=== PATIENT | female | born 1990 | race Caucasian/White ===

== ENCOUNTER → 2018-12-15 16:27 | Outpatient (CLI) | payer BC, SELFPAY ==
[2018-12-15 20:02] LABS: Chlamydia Trachomatis by PCR Negative (Negative); Neisserai gonorrhoeae by PCR Negative (Negative); Probe Check PASS; Sample Adequacy Control PASS; Specimen Processing Control PASS
[2018-12-21 16:16] LABS: HPV Reflexed? NOT INDICATED
== END ==
PROVIDERS: Visit Provider Obstetrics & Gynecology
DX: Z11.3 Encounter for screening for infections with a predominantly sexual mode of transmission (principal); Z12.4 Encounter for screening for malignant neoplasm of cervix
CPT/HCPCS: 87491; 87591; 87624; 88175; G0145

== ENCOUNTER → 2018-12-24 13:35 | Outpatient (CLI) | payer BC, SELFPAY ==
[2014-10-27 11:00] VITALS: BMI 29.6
[2018-12-24 15:51] LABS: Absolute Lymphocyte Count 2.32 X10^3/uL (0.83-4.51); Absolute Neutrophil Count 6.8 X10^3/uL (2.0-7.7); Basophil# 0.03 X10^3/uL; Basophil% 0.3 % (0-1); Eosinophil# 0.06 X10^3/uL; Eosinophils% 0.6 % (0-5); Hematocrit 38.2 % (37-47); Hemoglobin 12.7 g/dL (12.0-15.0); Lymphocyte # 2.32 X10^3/ul (4.0); Lymphocyte % 23.7 % (19-41); Mean Corp Hgb Conc 33.2 g/dL (32-36); Mean Corpuscular Hgb 29.3 pg (27.0-32.0); Mean Platelet Vol. 9.5 fl (6.2-12.0); Monocyte# 0.58 X10^3/uL; Monocyte% 5.9 % (0-10); NRBC Flagged by Analyzer 0 % (0-5); Neutrophil # 6.78 X10^3/uL (2.7-7.7); Neutrophil % 69.4 % (47-70); Platelet Count 399 K/mm3 (150-450); RBC Distribution Width CV 13.4 % (11.6-14.6); RBC Distribution Width SD 43.7 fl (35.1-43.9); Red Blood Count 4.34 M/mm3 (4.2-5.4); White Blood Count 9.8 K/mm3 (4.4-11.0)
[2018-12-24 16:11] LABS: Amphetamine Urine VISTA NEGATIVE (<1000 ng/mL); Barbiturate Urine VISTA NEGATIVE (< 200 ng/mL); Benzodiazepine Urine VISTA NEGATIVE (< 200 ng/mL); Cocaine Urine VISTA NEGATIVE (< 300 ng/mL); Ecstacy Urine VISTA NEGATIVE (< 500 ng/mL); Methadone Urine VISTA NEGATIVE (< 300 ng/mL); PCP Urine VISTA NEGATIVE (< 25 ng/mL); THC Urine VISTA NEGATIVE (< 50 ng/mL); Vista UDS pH Range 5
[2018-12-24 16:17] LABS: Thyroid Stim Hormone (TSH) 0.46 uIU/mL (0.358-3.74)
[2018-12-24 16:21] LABS: Color, Urine Straw (Yellow); Glucose, Dipstick Normal (Normal); Ketone-Dipstick 5 mg/dl (Negative); Leukocyte Esterase-Dipstick 100 /ul (Negative); Nitrite-Dipstick Negative (Negative); Occult Blood-Urine 25 /ul (Negative); Protein-Dipstick Negative (Negative); Specific Gravity, Urine 1.025 (1.002-1.030); Urine Bilirubin Dipstick Negative (Negative); Urine Clarity Turbid (Clear); Urine Urobilinogen 1 mg/dl (Normal)
[2018-12-27 09:55] LABS: HIV - WCH Non-Reactive (Nonreactive); Hepatitis B Surface Antigen Non-Reactive (Nonreactive); Hepatitis C Antibody Non-Reactive (Nonreactive); Rubella IgG 184.9 IU/mL
[2018-12-31 01:54] LABS: Prenatal RPR NONREACTIVE (NONREACTIVE)
== END ==
PROVIDERS: Visit Provider Obstetrics & Gynecology
DX: Z34.81 Encounter for supervision of other normal pregnancy, first trimester (principal)
CPT/HCPCS: 36415; 80307; 81002; 84443; 85025; 86703; 86762; 86803; 87340

== ENCOUNTER → 2019-04-29 14:56 | Outpatient (CLI) | payer BC, SELFPAY ==
[2014-10-27 11:00] VITALS: BMI 29.6
[2019-04-29 16:11] LABS: Hematocrit 37.6 % (37-47); Hemoglobin 12.1 g/dL (12.0-15.0); Mean Corp Hgb Conc 32.2 g/dL (32-36); Mean Corpuscular Hgb 28.9 pg (27.0-32.0); Mean Platelet Vol. 9.5 fl (6.2-12.0); Platelet Count 396 K/mm3 (150-450); RBC Distribution Width CV 13.8 % (11.6-14.6); RBC Distribution Width SD 45.3 fl (35.1-43.9); Red Blood Count 4.18 M/mm3 (4.2-5.4); White Blood Count 12.3 K/mm3 (4.4-11.0)
[2019-04-29 16:27] LABS: Glucose Challenge Gest 1H 50g 143 mg/dL (70-140)
== END ==
PROVIDERS: Referring Provider Advanced Practice Midwife; Visit Provider Advanced Practice Midwife
DX: Z34.82 Encounter for supervision of other normal pregnancy, second trimester (principal)
CPT/HCPCS: 36415; 82950; 85027

== ENCOUNTER → 2019-05-03 06:44 | Outpatient (CLI) | payer BC, SELFPAY ==
[2019-05-03 07:34] LABS: Glucose GTT-Gestation. Fasting 79 mg/dL (<105)
[2019-05-03 08:32] LABS: Glucose GTT-Gestational 1 Hr 131 mg/dL (<190)
[2019-05-03 09:22] LABS: Glucose GTT-Gestational 2 Hr 131 mg/dL (<165)
[2019-05-03 10:51] LABS: Glucose GTT-Gestational 3 Hr 114 L (<145)
== END ==
PROVIDERS: Obstetrics & Gynecology; PCP Family Medicine; Referring Provider Obstetrics & Gynecology; Visit Provider Obstetrics & Gynecology
DX: Z34.82 Encounter for supervision of other normal pregnancy, second trimester (principal)
CPT/HCPCS: 36415; 82951; 82952

== ENCOUNTER → 2019-07-01 12:45 | Outpatient (CLI) | payer BC, SELFPAY ==
[2014-10-27 11:00] VITALS: BMI 29.6
== END ==
PROVIDERS: PCP Family Medicine; Referring Provider Obstetrics & Gynecology; Visit Provider Obstetrics & Gynecology
DX: Z36.85 Encounter for antenatal screening for Streptococcus B (principal)
CPT/HCPCS: 87081

== ENCOUNTER 2019-08-03 07:05 | Inpatient (IN) | payer BC, SELFPAY ==
[2014-10-27 11:00] VITALS: BMI 29.6
[2019-08-03] VITALS (35 sets, daily range): BP systolic 104–158; BP diastolic 64–91; PULSE 64–115; RESP 16; TEMP 36.4–37.4; O2SAT 97–100; BMI 31.6
[2019-08-03] MEDS: Lactated Ringers 1,000 ML 50 ML IV (07:30)
[2019-08-03 07:46] LABS: Absolute Lymphocyte Count 2.76 X10^3/uL (0.83-4.51); Absolute Neutrophil Count 7.9 X10^3/uL (2.0-7.7); Basophil# 0.03 X10^3/uL; Basophil% 0.3 % (0-1); Eosinophil# 0.04 X10^3/uL; Eosinophils% 0.3 % (0-5); Hematocrit 39.2 % (37-47); Hemoglobin 12.6 g/dL (12.0-15.0); Lymphocyte # 2.76 X10^3/ul (4.0); Lymphocyte % 24.1 % (19-41); Mean Corp Hgb Conc 32.1 g/dL (32-36); Mean Corpuscular Hgb 27.6 pg (27.0-32.0); Mean Corpuscular Volume 85.8 fL (81-99); Mean Platelet Vol. 9.3 fl (6.2-12.0); Monocyte# 0.68 X10^3/uL; Monocyte% 5.9 % (0-10); NRBC Flagged by Analyzer 0 % (0-5); Neutrophil # 7.89 X10^3/uL (2.7-7.7); Neutrophil % 68.8 % (47-70); Platelet Count 414 K/mm3 (150-450); RBC Distribution Width CV 14.8 % (11.6-14.6); RBC Distribution Width SD 45.4 fl (35.1-43.9); Red Blood Count 4.57 M/mm3 (4.2-5.4); White Blood Count 11.5 K/mm3 (4.4-11.0)
[2019-08-03] MEDS: Oxytocin 30 units/NS 500 ml 30 UNITS/500 ML IV.SOLN IV (07:53)
[2019-08-03] MEDS: Lactated Ringers 500 ML 999 ML IV (10:17)
[2019-08-03] MEDS: fentaNYL-bupivacaine (epidural) 100 ML BAG EPIDURAL (11:51)
[2019-08-03] MEDS: Oxytocin 30 units/NS 500 ml 30 UNITS/500 ML IV.SOLN 334 UNITS IV (13:32)
--- NOTE | 2019-08-03 13:41 | HP.PCM_ITS ---
History and Physical Date of Admission: 08/03/19 [facility]TE[facility] RECORD - HISTORY AND PHYSICAL (08/03/2019) Name: JESSICA PERDOMO History of This : This is a 29-year-old who presents for postdates induction. care has been uneventful. OB Physician: CARISSA 's Physician: Dr Tran at [facility] ...................................................................... : 1990 Age: 29 Address: [address] [place] [address] Phone: H) [phone] Insurance Carrier: [employer] [facility] [id number] Emergency Contact: SLICK PERDOMO/ [phone] ...................................................................... Final SURYA: 07/27/19 By Ultrasound: 9 weeks 2 days PARITY: (G-Total Pregnancies P-Fullterm,Premature,Induced AB,Spont AB, Ectopics, Multiple,Living) SURYA CONFIRMATION: By LMP: 10/20/18 Initial Exam: 07/27/19 By First Ultrasound Exam: 07/24/19 Final SURYA: 07/27/19 OB PROBLEM LIST: 3 hour GTT was normal Declines MSAFP and CF screening NOT immune to chickenpox. 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 [place] Hours Worked - 15 hrs wk Spouse-Sig Other Name - Slick Perdomo Spouse-Sig Other Occupation - [employer] Spouse-Sig Other Phone No - [phone] Children Name(s) - Davidson ('13) JW, Berna ('15) ADWOA PRIOR DELIVERY HISTORY DEL DATE GEST LAB WT LB WT OZ TYPE ANES LABOR TX 07 Nov 04 40 8 7 15 Vagin Epidural No Nov 02 40 16 7 2 Vag Epidural No ANTEPARTUM FLOW CHART VISIT GE RTC FU F F NH U U DATE WK MD WKS HT PN HR M SS BP ED WT NH GL D EF ST __ ____ ___ __ __ ___ __ __ __ ___ __ __ __ ___ __ July JMW 6 38 V + + 114/70 sl 200 tr - S July JMW 1 38 V + + 128/82 sl 200 tr - 4 60 -2 30 Jun 39 CH 1 39 V + + 130/78 sl 199 - - 3+ 50 -2 Jun JMW 1 38 V + + 126/78 sl 200 tr - 2+ 50 -2 Jun JMW 1 37 + + 122/68 sl 199 tr - 10 Jun SHM 1 36 V + + 110/72 0 197 tr - 2+ 50 -3 13 May CH 2 32 V + + 96/78 0 191 tr - 28 Apr JMW 3 30 + + 118/72 0 191 tr - 07 May 19 KW 2 26 + ++ 110/78 0 189 ne ne Apr 14 JMW 4 24 + + 100/70 0 185 tr - 11 Mar 10 JMW 4 20 + + 122/78 0 184 - - Feb 06 JMW 2 17 + + 120/80 0 183 tr - 30 Jan 02 JMW 4 13 + + 116/60 0 185 tr - 04 Dec 29 ELB 4 - - + O 110/80 0 188 tr - ANTEPARTUM NOTE(S): Aug 01 2019: Ctxs-mild, Good FM July 27 2020: Ctxs-mild, Good FM Jul 20 2020: Ctxs-occas, Good FM Jul 13 2020: Good FM Jul 06 2020: Good FM,Feeling Well Jun 30 2020: see note Jun 03 2019: feeling well. May 20 2019: Gooid FM,Had Whooping Cough Inj on 05/18/19 Apr 29 2019: forgot to drink glucola today needs to return for lab Mar 30 2019: feeling well. Glucola given. Mar 02 2019: Sono Today,Good FM,Feeling Well Feb 16 2019: feeling well., Declines AFP Jan 19 2019: Nausea Better,Fatigue Periodically Dec 24 2018: feeling well. Nob labs done today. COMPREHENSIVE ANTEPARTUM NOTE(S): Aug 01 2019: Pitocin Induction scheduled for 7 AM 08/03/19 w/Elsi in OB. Consent signed. Induction literature given. Jul 21 2019: +FM. FHR 148 with accel heard. Feeling well. SVE today with membrane sweep done. /-2. Wants to avoid IOL and go into labor natural. No questions or concerns. To return next week if needed. - Jul 14 2019: Doing well. Good FM. Having some ctx's every day, nothing regular. No leaking fluid. No spotting. Wants vag exam today. She is pre- registered. kbm Jul 05 2019: H taken to OB. tkg Jul 01 2019: Jessica is here for visit. LARC consent completed and declined. GBS today. Reviewed FM, SROM, and labor. No concerns voiced. LMT Jun 03 2019: (m,f,*) Reviewed passing 3H gtt, although she had failed the 1H. To watch sweets and white carbs. Encouraged to switch to whole grains. Feeling good FM. FHR today 140. Reviewed signs of labor. Coronavirus info given. To return in 2 weeks for routine PNV w JW. - Apr 29 2019: Feeling well; reports active FM; denies UCs, VB, LOF; 1-hour Glucola and bloodwork drawn today; discussed safety concerns, warning signs, s/s PTL; RTO 2 weeks for PNV - KVW Jan 19 2019: Jessica is here for her NOB visit at 13 w 0 d, she is a with an SURYA of 07/27/2019. She and her , Slick, have two children at home. Both children were delivered vaginally; past history updated. Delivery with an epidural at [facility] is planned, and at this time Jessica is undecided about feeding method. She has reviewed handbook, and is aware of emergencies/danger signs to report and common OTC medications approved/not approved for use during . Office practice patterns reviewed. labs collected at her last visit. Round ligament pain and reporting suspected UTI discussed. Jessica states that her nausea is beginning to resolve, and she can eat and drink most foods. Encouraged small frequent balanced meals with protein included throughout the day, and adequate water hydration of at least one gallon per 24 hours. She is a life long non-smoker, and denies use of drugs or ETOH. Genetic Screening form completed; both Jessica and her have cousins with unknown developmental delays. MSAFP and CF screening declined, consent signed as such. She takes a tablet that she received from her PCP, and states that she tolerates this well. Water and dietary needs reinforced, including recommended weight gain, caloric needs, limiting empty calories, and limiting caffeine to one serving a day. Printed guide for food safety provided with review. Jessica states that she and her co- workers take walks at lunch time, and she plans to continue walking throughout . Reviewed Kegel exercises. Lifting restrictions discussed. Jessica states hat she understands all information provided during NOB visit and has no questions following same. AW New Dec 28 2018: Rubella immune. EB Dec 24 2018: O Positive Hgb 12.7 g/dl. EB Dec 22 2018: Pap and cultures WNL. EB Dec 15 2018: Jessica presents here today with spouse for Missed Menses appointment. 28 y.o. G 3 P 2 non-smoker with history of regular menses and LMP of 10-20-18 lasting her average of 4-5 days. UPT is positive today in our Office. Presents at 7 weeks 6 days with an approximate SURYA of 07-28-19 and plans at [facility], with last in 2014. Denies spotting/bleeding thus far in . Periodic nausea and tender breasts. History of normal pap screenings sinve 2012 with last in 2013. Currently taking an OTC Vitamin with Educational Materials given. SAUL Dec 15 2019: ok REVIEW OF SYSTEMS: GENERAL - Denies fever, or chills SKIN - Denies rash, new skin lesions, or change in moles EYES - Denies blurred vision, or change in visual acuity EARS - Denies ear pain, or difficulty hearing NOSE - Denies nasal congestion, discharge, or bleeding MOUTH - Denies sore throat, or difficulty swallowing NECK - Denies pain or swelling RESPIRATORY - Denies shortness of breath, cough, wheezing CARDIOVASCULAR - Denies palpitations, chest pain, orthopnea, PND, peripheral edema, syncope or claudication GASTROINTESTINAL - Denies nausea, vomiting, diarrhea, constipation, Denies abdominal pain, melena and or bright red blood GENITOURINARY - Denies dysuria, frequency of urination, urgency, or hesitancy MUSCULOSKELETAL - Denies joint or muscle pain, or back pain NEUROLOGICAL - Denies localized numbness, weakness, or tingling PSYCHIATRIC - Denies depression, anxiety, substance abuse or suicide attempts ENDOCRINE - Denies heat or cold intolerance, weight loss or gain, increasing thirst HEMATO-IMMUNOLOGIC - Denies easy bruising, bleeding, oral ulcerations or recurrent infections GENETICS SCREENING: Age 35+ years: No Thalassemia: No Neural Tube Defect: No Down Syndrome: No RICK-SACHS: No Sickle Cell Disease: No Hemophilia: No Musc. Dystrophy: No Cystic Fibrosis: No-declines screening [place] Chorea: No Mental Retardation: No Fragile X: No Other genetic: No Other defects: No SABs/still births: No Drugs since LMP: No Comments: cousins with developmental disabilities INFECTION HISTORY: High risk AIDS: No High risk Hepatitis: No Exposed to TB: No Exposed to Herpes: No Rash/viral illness since LMP: No History of STD: No MENSTRUAL HISTORY: *Menses Amount/Duration: 4-5 DAYSMenses Regularity: RegularFrequency: monthlyMenarche (Age Onset): 11* PAST SUMMARY: PARITY: 1. Total Pregnancies............ 3 2. Full Term Pregnancies........ 2 3. Premature.................... 0 4. Abortions - Induced.......... 0 5. Abortions - Spontaneous...... 0 6. Ectopics..................... 0 7. Multiple Births.............. 0 8. Living Children.............. 2 PAST #1: Date of :.................. 11/01/12 Gestation Weeks:................ 40 Length of labor(hours):......... 16 Sex:............................ M Weight-lbs:............... 7 Weight-oz:................ 2 Type of Delivery:............... Vag Type of Anesthesia:............. Epidural Place of Delivery:.............. [place] Treatment of Labor?:.... No Comment: NONE PAST #2: Date of :.................. 10/27/14 Gestation Weeks:................ 40 Length of labor(hours):......... 8 Sex:............................ M Weight-lbs:............... 7 Weight-oz:................ 15 Type of Delivery:............... Vaginal Type of Anesthesia:............. Epidural Place of Delivery:.............. [place] Treatment of Labor?:.... No Comment: PHYSICAL EXAMINATION General Appearence: 29 yo female in no acute distress Vital Signs: AF, VSS Heart: RRR without rubs or gallops Lungs: CTA x 2 Breasts: deferred Abdomen: gravid Pelvis: Cervix: 4+/60 percent effaced Presentation: cephalic Station: -2 station Fetus: Size: AGA Movement: present Heart: present Labs for : JESSICA PERDOMO since 10/30/2018 ORDER DATEIN DESCRIPTION VALUE UNITS RANGE A+ COMMENT TYPE AND SCREEN 08/03/19 Reason for Type AND Screen/Red Cells: Labor [facility]~[address] [place], [address]~ BLOOD TYPE GEL O POSITIVE N w ANTIBODY SCREEN NEGATIVE N CBC W/DIFF, AUTOMATED 08/03/19 NOTE Original Ordering Provider: Greg Patrick WBC 11.5 K/mm3 4.4-11.0 H RBC 4.57 M/mm3 4.2-5.4 HGB 12.6 g/dL 12.0-15.0 HCT 39.2 % 37-47 MCV 85.8 fL 81-99 MCH 27.6 pg 27.0-32.0 MCHC 32.1 g/dL 32-36 RDW CV 14.8 % 11.6-14.6 H RDW SD 45.4 fl 35.1-43.9 H PLT 414 K/mm3 150-450 MPV 9.3 fl 6.2-12.0 NEUT% 68.8 % 47-70 LY% 24.1 % 19-41 MONO% 5.9 % 0-10 EO% 0.3 % 0-5 BASO% 0.3 % 0-1 IM GRAN % 0.600 % 0.0-0.9 IG% - Immature Granulocytes (promyelocytes, myelocytes and metamyelocytes) > 1% indicates that a LEFT SHIFT is Present. ABSOLUTE NEUT 7.9 X10 3/uL 2.0-7.7 H ABSOLUTE LYMPH 2.76 X10 3/uL 0.83-4.51 NRBC, FLAGGED 0 % 0-5 CULTURE, GROUP B STREPTOCOCCUS 07/01/19 NOTE Original Ordering Provider: Cindy Gonsalves WAYLON Culture Group B Beta Streptococcus is not isolated. Reviewed by DEJA GESTATIONAL GTT 3HR 100G 05/03/19 NOTE Original Ordering Provider: RUTH ANN Pedroza GLU GTT-FASTING 79 mg/dL <105 GLUCOSE TOLERANCE TEST FOR Reference Interval GESTATIONAL DIABETES Fasting <105 mg/dL 1 hour <190 mg/dl 2 hour <165 mg/dl 3 hour <145 mg/dl GLU GTT- 1HR 131 mg/dL <190 GLU GTT- 2HR 131 mg/dL <165 GLU GTT- 3HR 114 L <145 Reviewed by GREG GLUCOSE CHALLENGE GEST 1H 50G 04/29/19 NOTE Original Ordering Provider: RUTH ANN Rachaelamerico Porras GLU GEST 50G 1H 143 mg/dL 70-140 H Reviewed by DEJA CBC-COMPLETE BLOOD CNT NO DIFF 04/29/19 NOTE Original Ordering Provider: JASONMarietta Porras WBC 12.3 K/mm3 4.4-11.0 H RBC 4.18 M/mm3 4.2-5.4 L HGB 12.1 g/dL 12.0-15.0 HCT 37.6 % 37-47 MCV 90.0 fL 81-99 MCH 28.9 pg 27.0-32.0 MCHC 32.2 g/dL 32-36 RDW CVw 13.8 % 11.6-14.6 RDW SD 45.3 fl 35.1-43.9 H PLT 396 K/mm3 150-450 MPV 9.5 fl 6.2-12.0 Reviewed by DEJA koch RPR 12/24/18 NOTE Original Ordering Provider: Jessica Monsalve RPR NONREACTIVE NONREACTIVE Reviewed by JESSICA HEPATITIS C ANTIBODY 12/24/18 NOTE Original Ordering Provider: Jessica Monsalve HEPATITIS C AB Non-Reactive Nonreactive Non Reactive: < 0.8 Equivocal: >/= 0.8 to < 1.0 Reactive: >/= 1.0 The CDC recommends that a reactive/equivocal HCV antibody result be followed up by the HCV Nucleic Acid Amplification test ([id number]) HEPATITIS B SURFACE ANTIGEN 12/24/18 NOTE Original Ordering Provider: Jessica Monsalve HEPB SURFACE AG Non-Reactive Nonreactive Reviewed by JESSICA HIV - [facility] 12/24/18 NOTE Original Ordering Provider: Jessica Monsalve HIV - [facility] Non-Reactive Nonreactive Reviewed by JESSICA RUBELLA IGG 12/24/18 NOTE w Original Ordering Provider: Jessica Monsalve RUBELLA IGG 184.9 IU/mL Antibody results Interpretation of Immune Status < 5 IU/ml Presumed Non-immune 5 - < 10 IU/ml Equivocal > or = 10 IU/ml Presumed Immune Reviewed by JESSICA T AND S-NO CHARGE W/PNP 12/24/18 Reason for Type AND Screen/Red Cells: Surgery? N [facility]~[address] [place], [address]~ BLOOD TYPE GEL O POSITIVE N AB SCREEN GEL NEGATIVE N Reviewed by JESSICA URINALYSIS, ROUTINE (DIPSTICK) 12/24/18 NOTE Original Ordering Provider: Jessica Monsalve COLOR Straw Yellow CLARITY Turbid Clear GLUCOSE, UR Normal mg/dl Normalw BILIRUBIN URINE Negative mg/dL Negative KETONE UR 5 mg/dl Negative H SP.GR. DIPSTX 1.025 1.002-1.030 PH UR 5.0 w 5.0 - 8.0 PROT DIPSTX Negative mg/dl Negative UROBILI 1 mg/dl Normal H NITRITE UR Negative Negative OCCULT BLOOD-UR 25 /ul Negative H LEUK ESTERASE 100 /ul Negative H Reviewed by JESSICA THYROID STIM HORMONE (TSH) 12/24/18 NOTE Original Ordering Provider: Jessica Monsalve TSH 0.46 uIU/mL 0.358-3.74 Reviewed by JESSICA URINE DRUG SCREEN (VISTA) 12/24/18 NOTE Original Ordering Provider: Jessica Monsalve TO BE CONFIRMED CONFIRMATORY TESTING FOR ALL POSITIVE URINE DRUG SCREEN RESULTS WILL ONLY BE SENT OUT UPON PHYSICIAN ORDER. VISTA Urine Drug Screen methods provide only preliminary analytical test results. A more specific alternate chemical method must be used in order to obtain a confirmed analytical result. Gas chromatography/mass spectrometery (GC/MS) is the preferred confirmatory method. Clinical consideration and professional judgement should be applied to any drug of abuse test result, particularly when preliminary positive results are used. URINE TCA TESTING MUST BE ORDERED SEPARATELY. USE TEST MNEMONIC: [facility]IST[facility] UDS PH 5 AMPHETAMINES NEGATIVE <1000 ng/mL BARBITIURATES NEGATIVE < 200 ng/mL BENZODIAZIPINE NEGATIVE < 200 ng/mL COCAINE NEGATIVE < 300 ng/mL ECSTACY NEGATIVE < 500 ng/mL METHADONE NEGATIVE < 300 ng/mL OPIATES NEGATIVE < 300 ng/mL PCP NEGATIVE < 25 ng/mL THC NEGATIVE < 50 ng/mL Reviewed by JESSICA CBC W/DIFF, AUTOMATED 12/24/18 NOTE Original Ordering Provider: Jessica Monsalve WBC 9.8 K/mm3 4.4-11.0 RBC 4.34 M/mm3 4.2-5.4 HGB 12.7 g/dL 12.0-15.0 HCT 38.2 % 37-47 MCV 88.0 fL 81-99 MCH 29.3 pg 27.0-32.0 MCHC 33.2 g/dL 32-36 RDW CV 13.4 % 11.6-14.6 RDW SD 43.7 fl 35.1-43.9 PLT 399 K/mm3 150-450 MPV 9.5 fl 6.2-12.0 NEUT% 69.4 % 47-70 LY% 23.7 % 19-41 MONO% 5.9 % 0-10 EO% 0.6 % 0-5 BASO% 0.3 % 0-1 IM GRAN % 0.100 % 0.0-0.9 IG% - Immature Granulocytes (promyelocytes, myelocytes and metamyelocytes) > 1% indicates that a LEFT SHIFT is Present. ABSOLUTE NEUT 6.8 X10 3/uL 2.0-7.7 ABSOLUTE LYMPH 2.32 X10 3/uL 0.83-4.51 NRBC, FLAGGED 0 % 0-5 Reviewed by JESSICA PAP IG W/REFLEX HR HPV APTIMA 12/15/18 NOTE Original Ordering Provider: Greg Patrick DIAGN . NEGATIVE FOR INTRAEPITHELIAL LESION OR MALIGNANCY. ADEQ . Satisfactory for evaluation. Endocervical and/or squamous metaplastic cells (endocervical component) are present. PERFORM . Araceli Carran[employer] Sales Representative (ASCP) TEST METHOD . This liquid based ThinPrep(R) pap test was screened with the use of an image guided system. COMM . . PAPSMR . The Pap smear is a screening test designed to aid in the detection of premalignant and malignant conditions of the uterine cervix. It is not a diagnostic procedure and should not be used as the sole means of detecting cervical cancer. Both false-positive and false-negative reports do occur. HPV RFLX . The HPV DNA reflex criteria were not met with this specimen result therefore, no HPV testing was performed. Performed at: [address], [place] [id number] Water Valve Mechanic: Maryanne Campbell MD, Phone: [phone] Reviewed by JESSICA OLEARY/MICHAEL [facility] BY PCR 12/15/18 NOTE Original Ordering Provider: Greg HYMAN [facility] PCR Negative Negative NG BY PCR Negative Negative Reviewed by GREG Impression /Plan: 41-week intrauterine for postdates induction with amniotomy and Pitocin. Expect spontaneous vaginal delivery. Preparations in progress for delivery.
--- NOTE | 2019-08-03 13:46 | PCM.OPRPT ---
Vaginal Delivery Maternal Presentation: Medically Indicated Induction Method of Induction: Pitocin, Amniotomy Medical Reason for Induction: Post term Amniotic Membrane Rupture Type: Artificial Amniotic Fluid Description: Clear Final SURYA: 07/27/19 Final SURYA Source: US <20 weeks Gestational age: 41 Weeks and 0 Days Date of Procedure: 08/03/19 Pre-Operative Diagnosis: Postdatism, IUP Post-Operative Diagnosis: Postdatism, IUP Surgery/ Procedure Performed: Vacuum Assisted Vaginal Delivery Type of Anesthesia: Epidural Description of Procedure: Spontaneous vaginal delivery of a viable male infant with Apgars of 9/9 from an occiput anterior presentation with clear amniotic fluid and normal three-vessel placenta. No episiotomy. Second-degree midline laceration repaired with 3-0 Rapide suture under epidural. Kiwi vacuum used x1 gentle pull from low outlet to expedite delivery of the head due to deep decelerations with contractions. Sponges okay. Delivery physician: Germain Patrick MD. Presentation: Vertex Placental Delivery Description: Spontaneous Placenta Disposition: [facility] Cord Vessel Description: 3 Vessels Cord Entanglement: None Estimated Blood Loss: 250 cc A gender: Male (1 minute): 9 (5 minute): 9 Episiotomy Description: None Laceration: Midline, 2nd degree Medications given after delivery: IV Pitocin Complications: None
--- NOTE | 2019-08-03 13:49 | DCINST_ITS ---
<Germain Patrick - Last Filed: 08/03/19 13:49> Discharge Diet: No Restrictions Discharge Activity: May Shower, May Take a Tub Bath May resume sexual activity in: 4-6 weeks Additional Activity Instructions:: Nothing in the vagina for 4-6 weeks. You may return to work/school in 6 weeks. Call your doctor if you observe: Fever of 101 or Higher, Inability to urinate, Inability to have a bowel movement, Using more than one pad per hour Additional Instructions: If you experience any of the following, contact your healthcare provider. * Bleeding that soaks a pad every hour for 2 hours * Fever 100.4 or higher * Unrelieved incision or abdominal pain * Swelling, redness, discharge or bleeding from your incision or episiotomy site * Your incision begins to separate * Problems urinating (including inability to urinate or burning while urinating). * Visual changes * Severe headache * Flu-like symptoms * Pain or redness in one of both of your breasts * Pain, warmth, tenderness or swelling in your legs, especially the calf area * Frequent nausea and vomiting * Symptoms of depression or anxiety If you experience any of the following, call 911 or go to the nearest Emergency Room. * Chest pain * Problems breathing * Seizure activity * Partial or complete paralysis of a body part, slurred speech, weakness or drooping of the face, or a sudden inability to walk or hold your balance Allergies/Adverse Reactions: Allergies No Known Allergies Allergy (Verified 08/03/19 07:26) Medications to take at Discharge Vits [Prenatabs FA ] 1 tablet PO DAILY 10/27/14 Please Follow Up With: Germain Patrick MD - [phone] When: Call to make an appointment with your doctor in 6 weeks. Primary Care Physician: Carlos Rob MD [Primary Care Provider] - Test Results: Test results from this visit will be discussed in further detail at your follow- up appointment, if applicable. <Cindy Pandey - Last Filed: 08/05/19 08:47> Additional Instructions: If you experience any of the following, contact your healthcare provider. * Bleeding that soaks a pad every hour for 2 hours * Fever 100.4 or higher * Unrelieved incision or abdominal pain * Swelling, redness, discharge or bleeding from your incision or episiotomy site * Your incision begins to separate * Problems urinating (including inability to urinate or burning while urinating). * Visual changes * Severe headache * Flu-like symptoms * Pain or redness in one of both of your breasts * Pain, warmth, tenderness or swelling in your legs, especially the calf area * Frequent nausea and vomiting * Symptoms of depression or anxiety If you experience any of the following, call 911 or go to the nearest Emergency Room. * Chest pain * Problems breathing * Seizure activity * Partial or complete paralysis of a body part, slurred speech, weakness or drooping of the face, or a sudden inability to walk or hold your balance Test Results: Test results from this visit will be discussed in further detail at your follow- up appointment, if applicable.
--- NOTE | 2019-08-03 13:49 | PCM.DCVAG ---
<Germain Patrick - Last Filed: 08/03/19 13:49> Discharge Diet: No Restrictions Discharge Activity: May Shower, May Take a Tub Bath May resume sexual activity in: 4-6 weeks Additional Activity Instructions:: Nothing in the vagina for 4-6 weeks. You may return to work/school in 6 weeks. Call your doctor if you observe: Fever of 101 or Higher, Inability to urinate, Inability to have a bowel movement, Using more than one pad per hour Additional Instructions: If you experience any of the following, contact your healthcare provider. Bleeding that soaks a pad every hour for 2 hours Fever 100.4 or higher Unrelieved incision or abdominal pain Swelling, redness, discharge or bleeding from your incision or episiotomy site Your incision begins to separate Problems urinating (including inability to urinate or burning while urinating). Visual changes Severe headache Flu-like symptoms Pain or redness in one of both of your breasts Pain, warmth, tenderness or swelling in your legs, especially the calf area Frequent nausea and vomiting Symptoms of depression or anxiety If you experience any of the following, call 911 or go to the nearest Emergency Room. Chest pain Problems breathing Seizure activity Partial or complete paralysis of a body part, slurred speech, weakness or drooping of the face, or a sudden inability to walk or hold your balance Allergies/Adverse Reactions: Allergies No Known Allergies Allergy (Verified 08/03/19 07:26) Medications to take at Discharge Vits [Prenatabs FA ] 1 tablet PO DAILY 10/27/14 Please Follow Up With: Gemrain Patrick MD - [phone] When: Call to make an appointment with your doctor in 6 weeks. Primary Care Physician: Carlos Rob MD [Primary Care Provider] - Test Results: Test results from this visit will be discussed in further detail at your follow-up appointment, if applicable. <Cindy Pandey - Last Filed: 08/05/19 08:47> Additional Instructions: If you experience any of the following, contact your healthcare provider. Bleeding that soaks a pad every hour for 2 hours Fever 100.4 or higher Unrelieved incision or abdominal pain Swelling, redness, discharge or bleeding from your incision or episiotomy site Your incision begins to separate Problems urinating (including inability to urinate or burning while urinating). Visual changes Severe headache Flu-like symptoms Pain or redness in one of both of your breasts Pain, warmth, tenderness or swelling in your legs, especially the calf area Frequent nausea and vomiting Symptoms of depression or anxiety If you experience any of the following, call 911 or go to the nearest Emergency Room. Chest pain Problems breathing Seizure activity Partial or complete paralysis of a body part, slurred speech, weakness or drooping of the face, or a sudden inability to walk or hold your balance Test Results: Test results from this visit will be discussed in further detail at your follow-up appointment, if applicable.
[2019-08-03] MEDS: Ibuprofen 600 MG Tablet PO (22:09)
[2019-08-04] VITALS (10 sets, daily range): BP systolic 103–122; BP diastolic 58–77; PULSE 66–96; RESP 14–18; TEMP 36.2–36.6; O2SAT 96–98
--- NOTE | 2019-08-04 07:24 | PCM.PN.OB ---
Subjective: Doing well with cramping while , but tolerable. Denies heavy bleeding. Has been up to the bathroom. Urinating fine and passing flatus. Denies any other concerns. Would like to stay until tomorrow. Objective: VSS. Fundus is firm, midline, u/1. Lochia rubra moderate. with appropriate latch. - Physical Exam Vitals/I&O's: Vital Signs Temp Pulse Resp BP Pulse Ox 97.1 F L 66 18 122/77 H 99 08/04/19 04:50 08/04/19 04:51 08/04/19 04:50 08/04/19 04:51 08/03/19 12:09 Oxygen Delivery Method Room Air Weight: 91.444 kg Body Mass Index (BMI) 31.6 Intake and Output for Last 24 Hours 08/02/19 08/03/19 08/04/19 23:59 23:59 23:59 Intake Total 1698.90 / 1698.90 Output Total 1400 / 1400 Balance 298.90 / 298.90 General: Alert, Oriented x3, Cooperative HEENT: Atraumatic, PERRLA, EOMI, Normocephalic Neck: Supple, No JVD, Negative Carotid Bruits Lungs: Clear to auscultation, Normal air movement Cardiovascular: Regular rate, No murmurs Abdomen: Bowel Sounds Present, Soft, Non Tender, Passing Flatus Extremities: No edema, Capillary Refill Less than 3 Seconds Skin: No rashes, No breakdown Musculoskeletal: No Tenderness to Palpation of Joints or Extremities Neurological: Cranial nerves II-XII grossly intact Psych/Mental Status: Normal Affect, Appropriate Laboratory Results 08/03/19 07:30: WBC 11.5 H, RBC 4.57, Hgb 12.6, Hct 39.2, MCV 85.8, MCH 27.6, MCHC 32.1, RDW Std Deviation 45.4 H, RDW Coeff of Sanjay 14.8 H, Plt Count 414, MPV 9.3, Immature Gran % (Auto) 0.600, Neut % (Auto) 68.8, Lymph % (Auto) 24.1, [place] % (Auto) 5.9, Eos % (Auto) 0.3, Baso % (Auto) 0.3, Absolute Neuts (auto) 7.9 H, Absolute Lymphs (auto) 2.76, Nucleated RBC % 0 08/03/19 07:30: Blood Type O POSITIVE, Antibody Screen NEGATIVE Current Medications Acetaminophen (Tylenol) 1,000 mg PO Q8H PRN PRN PRN Reason: Pain Score 1-3/10 Bisacodyl (Dulcolax) 10 mg RECTAL UD PRN PRN Reason: If no BM Dibucaine (Dibucaine) 1 applic TOPICAL TID PRN PRN; Protocol PRN Reason: Discomfort Hydrocortisone (Hytone) 1 applic TOPICAL TID PRN PRN; Protocol PRN Reason: Discomfort Ibuprofen (Motrin) 600 mg PO Q6H PRN PRN PRN Reason: Pain Score 1-3/10 Last Admin: 08/03/19 22:09 Dose: 600 mg Documented by: Measles/Mumps/Rubella Vaccine Live (M-M-R Ii) 0.5 ml SC .ONCE ONE Stop: 08/04/19 10:01 Last Admin: 08/03/19 15:18 Dose: Not Given Documented by: Methylergonovine Maleate (Methergine) 0.2 mg IM X1 PRN PRN Reason: Excess bleeding/uterine atony Ondansetron HCl (Zofran) 4 mg IV Q4H PRN PRN PRN Reason: Nausea Oxycodone HCl (Oxyir) 5 - 10 mg PO Q4H PRN PRN PRN Reason: Pain Score 4-10/10 Senna/Docusate Sodium (Senokot-S, Noris-Colace) 1 - 2 tablet PO DAILY PRN PRN PRN Reason: Constipation Simethicone (Mylicon) 80 mg PO PCHS PRN PRN Reason: Indigestion/Stomach pain Sodium Chloride () 5 - 15 ml IV UD PRN PRN Reason: SALINE FLUSH Zolpidem Tartrate (Ambien (Generic)) 5 mg PO QHS PRN PRN PRN Reason: Insomnia Medical Necessity - Tobacco Use Smoking Status: Never smoker Assessment/Plan A/P S/P vacuum assisted delivery day #1 Mother/ dyad stable Normal course and involution Continue current orders Plan discharge tomorrow
[2019-08-04] MEDS: Ibuprofen 600 MG Tablet PO (21:32)
[2019-08-05] VITALS (7 sets, daily range): BP systolic 99–115; BP diastolic 51–69; PULSE 59–95; RESP 12–18; TEMP 36.3–36.6; O2SAT 99
--- NOTE | 2019-08-05 08:52 | PCM.PN.OB ---
Subjective: , working on latching. Denies significant pain or heavy lochia. Objective: AVSS - Physical Exam Vitals/I&O's: Vital Signs Temp Pulse Resp BP Pulse Ox 97.8 F 83 16 109/69 99 08/05/19 07:49 08/05/19 07:50 08/05/19 07:49 08/05/19 07:50 08/05/19 07:49 Oxygen Delivery Method Room Air Weight: 91.444 kg Body Mass Index (BMI) 31.6 Intake and Output for Last 24 Hours 08/03/19 08/04/19 08/05/19 23:59 23:59 23:59 Intake Total 1698.90 / 1698.90 Output Total 1400 / 1400 Balance 298.90 / 298.90 General: Alert, Oriented x3, Cooperative, No apparent distress HEENT: Atraumatic, Normocephalic Abdomen: Soft, Non Tender, Non-Distended Extremities: No Calf Tenderness Neurological: Neuro grossly intact Psych/Mental Status: Normal Affect, Appropriate, Alert and oriented to time, place, person, mood and affect Comment: Fundus firm and nontender Current Medications Acetaminophen (Tylenol) 1,000 mg PO Q8H PRN PRN PRN Reason: Pain Score 1-3/10 Bisacodyl (Dulcolax) 10 mg RECTAL UD PRN PRN Reason: If no BM Dibucaine (Dibucaine) 1 applic TOPICAL TID PRN PRN; Protocol PRN Reason: Discomfort Hydrocortisone (Hytone) 1 applic TOPICAL TID PRN PRN; Protocol PRN Reason: Discomfort Ibuprofen (Motrin) 600 mg PO Q6H PRN PRN PRN Reason: Pain Score 1-3/10 Last Admin: 08/04/19 21:32 Dose: 600 mg Documented by: Methylergonovine Maleate (Methergine) 0.2 mg IM X1 PRN PRN Reason: Excess bleeding/uterine atony Ondansetron HCl (Zofran) 4 mg IV Q4H PRN PRN PRN Reason: Nausea Oxycodone HCl (Oxyir) 5 - 10 mg PO Q4H PRN PRN PRN Reason: Pain Score 4-10/10 Senna/Docusate Sodium (Senokot-S, Noris-Colace) 1 - 2 tablet PO DAILY PRN PRN PRN Reason: Constipation Simethicone (Mylicon) 80 mg PO PCHS PRN PRN Reason: Indigestion/Stomach pain Sodium Chloride () 5 - 15 ml IV UD PRN PRN Reason: SALINE FLUSH Zolpidem Tartrate (Ambien (Generic)) 5 mg PO QHS PRN PRN PRN Reason: Insomnia Medical Necessity - Tobacco Use Smoking Status: Never smoker Assessment/Plan 29yo PPD#2 s/p doing well. - O pos, Rubella immune - -d/c home today
== END 2019-08-05 15:00 | disposition home or self-care (01) | DRG 807 ==
PROVIDERS: Admitting Provider Obstetrics & Gynecology; PCP Family Medicine; Referring Provider Obstetrics & Gynecology; Visit Provider Obstetrics & Gynecology
DX: O48.0 Post-term pregnancy (principal); O70.1 Second degree perineal laceration during delivery; O76 Abnormality in fetal heart rate and rhythm complicating labor and delivery; Z3A.41 41 weeks gestation of pregnancy; Z37.0 Single live birth
CPT/HCPCS: 59025; 59050; 85025; 86850; 86900; 86901; 99218; J7120; G0378

== ENCOUNTER 2021-04-15 09:44 | Outpatient (CLI) | payer BC, SELFPAY ==
[2021-04-15 10:56] LABS: hCG Titer Quant., Serum 36 mIU/mL (1-3)
== END 2021-04-15 23:59 | disposition short-term general hospital (02) ==
LOC: WOBLAB 09:45
PROVIDERS: PCP Family Medicine; Visit Provider Student in an Organized Health Care Education/Training Program
DX: O03.9 Complete or unspecified spontaneous abortion without complication (principal)
CPT/HCPCS: 36415; 84702

== ENCOUNTER 2021-06-11 11:23 | Outpatient (CLI) | payer BC, SELFPAY ==
[2021-06-11 13:17] LABS: Absolute Lymphocyte Count 2.26 X10^3/uL (0.83-4.51); Absolute Neutrophil Count 8.5 X10^3/uL (2.0-7.7); Basophil# 0.04 X10^3/uL; Basophil% 0.3 % (0-1); Eosinophil# 0.05 X10^3/uL; Eosinophils% 0.4 % (0-5); Hemoglobin 13.1 g/dL (12.0-15.0); Lymphocyte # 2.26 X10^3/ul (0.83-4.51); Lymphocyte % 19.7 % (19-41); Mean Corp Hgb Conc 33.6 g/dL (32-36); Mean Corpuscular Hgb 29.3 pg (27.0-32.0); Mean Corpuscular Volume 87.2 fL (81-99); Mean Platelet Vol. 9.5 fl (6.2-12.0); Monocyte# 0.63 X10^3/uL; Monocyte% 5.5 % (0-10); NRBC Flagged by Analyzer 0 % (0-5); Neutrophil # 8.46 X10^3/uL (2.7-7.7); Neutrophil % 73.8 % (47-70); Platelet Count 425 K/mm3 (150-450); RBC Distribution Width SD 44.8 fl (35.1-43.9); Red Blood Count 4.47 M/mm3 (4.2-5.4); White Blood Count 11.5 K/mm3 (4.4-11.0)
[2021-06-11 14:05] LABS: HIV - WCH Non-Reactive (Nonreactive); Hepatitis B Surface Antigen Non-Reactive (Nonreactive); Hepatitis C Antibody Non-Reactive (Nonreactive); Rubella IgG Reactive (Nonreactive); Syphilis Antibodies Non-reactive
[2021-06-14 00:07] LABS: Chlamydia By Nucleic Acid AMP Negative (Negative)
[2021-06-14 09:13] LABS: Gonococcus By Nucleic Acid AMP Negative (Negative)
[2021-06-17 15:55] LABS: HPV APTIMA, High Risk Negative (Negative)
== END 2021-06-11 23:59 | disposition home or self-care (01) ==
LOC: WOBLAB 11:25
PROVIDERS: PCP Family Medicine; Visit Provider Obstetrics & Gynecology
DX: Z34.81 Encounter for supervision of other normal pregnancy, first trimester (principal)
CPT/HCPCS: 36415; 85025; 86703; 86762; 86780; 86803; 87086; 87088; 87340; 87491; 87591; 87624; 88175; G0145

== ENCOUNTER → 2021-11-12 | Outpatient (CLI) | payer BC, SELFPAY ==
[2021-11-12 11:13] LABS: Basophil# 0.01 X10^3/uL; Basophil% 0.1 % (0-1); Eosinophil# 0.02 X10^3/uL; Eosinophils% 0.2 % (0-5); Hematocrit 35.4 % (37-47); Hemoglobin 11.7 g/dL (12.0-15.0); Lymphocyte % 15.8 % (19-41); Mean Corp Hgb Conc 33.1 g/dL (32-36); Mean Corpuscular Hgb 29.8 pg (27.0-32.0); Mean Corpuscular Volume 90.1 fL (81-99); Mean Platelet Vol. 9.5 fl (6.2-12.0); Monocyte# 0.39 X10^3/uL; Monocyte% 3.9 % (0-10); NRBC Flagged by Analyzer 0 % (0-5); Neutrophil # 8.03 X10^3/uL (2.7-7.7); Neutrophil % 79.3 % (47-70); Platelet Count 399 K/mm3 (150-450); RBC Distribution Width CV 14.4 % (11.6-14.6); RBC Distribution Width SD 47.2 fl (35.1-43.9); Red Blood Count 3.93 M/mm3 (4.2-5.4); White Blood Count 10.1 K/mm3 (4.4-11.0)
[2021-11-12 11:20] LABS: Glucose Challenge Gest 1H 50g 141 mg/dL (70-140)
== END | disposition home or self-care (01) ==
LOC: WOBLAB 10:32
PROVIDERS: PCP Family Medicine; Visit Provider Obstetrics & Gynecology
DX: Z34.83 Encounter for supervision of other normal pregnancy, third trimester (principal)
CPT/HCPCS: 36415; 82950; 85025

== ENCOUNTER → 2021-11-13 | Outpatient (CLI) | payer BC, SELFPAY ==
[2021-11-13 09:51] LABS: Glucose GTT-Gestation. Fasting 83 mg/dL (<105)
[2021-11-13 11:04] LABS: Glucose GTT-Gestational 1 Hr 159 mg/dL (<190)
[2021-11-13 13:01] LABS: Glucose GTT-Gestational 2 Hr 155 mg/dL (<165)
[2021-11-13 13:02] LABS: Glucose GTT-Gestational 3 Hr 125 L (<145)
== END | disposition home or self-care (01) ==
LOC: WOBLAB 09:00
PROVIDERS: PCP Family Medicine; Visit Provider Obstetrics & Gynecology
DX: Z34.83 Encounter for supervision of other normal pregnancy, third trimester (principal)
CPT/HCPCS: 36415; 82951; 82952

== ENCOUNTER → 2022-01-08 | Outpatient (CLI) | payer BC, SELFPAY | END | disposition home or self-care (01) | LOC: LABSPEC 13:58 | PROVIDERS: PCP Family Medicine; Visit Provider Student in an Organized Health Care Education/Training Program | DX: Z36.85 Encounter for antenatal screening for Streptococcus B (principal) | CPT/HCPCS: 87081 ==

== ENCOUNTER 2022-01-31 03:46 | Inpatient (IN) | payer BC, SELFPAY ==
[2022-01-31] VITALS (37 sets, daily range): BP systolic 104–153; BP diastolic 57–92; PULSE 61–109; RESP 16; TEMP 36.3–36.9; O2SAT 85–100; BMI 33.1
[2022-01-31] MEDS: Lactated Ringers 1,000 ML 200 ML IV (04:12)
[2022-01-31] MEDS: LACTATED RINGERS 500 ML 999 ML IV (04:19)
[2022-01-31 04:26] LABS: Absolute Lymphocyte Count 2.46 X10^3/uL (0.83-4.51); Absolute Neutrophil Count 8.1 X10^3/uL (2.0-7.7); Basophil# 0.02 X10^3/uL; Basophil% 0.2 % (0-1); Eosinophil# 0.01 X10^3/uL; Eosinophils% 0.1 % (0-5); Hematocrit 39.6 % (37-47); Hemoglobin 13.2 g/dL (12.0-15.0); Lymphocyte # 2.46 X10^3/ul (0.83-4.51); Lymphocyte % 21.6 % (19-41); Mean Corp Hgb Conc 33.3 g/dL (32-36); Mean Corpuscular Hgb 28.6 pg (27.0-32.0); Mean Corpuscular Volume 85.9 fL (81-99); Mean Platelet Vol. 10.5 fl (6.2-12.0); Monocyte# 0.67 X10^3/uL; Monocyte% 5.9 % (0-10); NRBC Flagged by Analyzer 0 % (0-5); Neutrophil # 8.12 X10^3/uL (2.7-7.7); Neutrophil % 71.4 % (47-70); Platelet Count 359 K/mm3 (150-450); RBC Distribution Width SD 49.4 fl (35.1-43.9); Red Blood Count 4.61 M/mm3 (4.2-5.4); White Blood Count 11.4 K/mm3 (4.4-11.0)
[2022-01-31 04:45] LABS: ALB/GLOB Ratio 0.6 RATIO (0.9-2.4); AST(SGOT) 14 U/L (15-37); Alanine Aminotransfer ALT/SGPT 14 U/L (13-56); Albumin, Serum 2.7 g/dL (3.2-5.0); Alkaline Phosphatase 218 U/L (45-117); Anion Gap 12 (5-15); BUN 15 mg/dL (7-18); BUN/Creat Ratio 19.1 RATIO (10-20); Calcium,Total 9.3 mg/dL (8.5-10.1); Chloride 105 mmol/L (98-107); Creatinine, Serum 0.79 mg/dL (0.55-1.02); EST Glomerular Filtration Rate 89 mL/min (>60); Est Glom Filt Rate - Afr Amer 108 mL/min (>60); Estimated Creatinine Clearance 94.82 ml/min; Globulin 4.3 g/dL (2.2-4.2); Glucose 88 mg/dL (74-106); LDH 150 U/L (84-246); Potassium 3.6 mmol/L (3.5-5.1); Sodium Level 135 mmol/L (136-145)
[2022-01-31] MEDS: fentaNYL-bupivacaine (epidural) 100 ML BAG EPIDURAL (05:28)
--- NOTE | 2022-01-31 06:40 | PCM.HP.BLA ---
History and Physical Date of Admission: 01/31/22 Chief complaint: Contractions History of present illness: 31-year-old G5, P3 at 39 weeks and 6 days with SURYA 02/01/2022 arrives with contractions. Denies headache, visual changes, chest pain, shortness of breath, nausea vomit, right upper quadrant pain. Patient states good movement. Obstetric history: G1: 40-week male 7 pounds 2 ounces G2: 40-week female 7 pounds 15 ounces G3: 41-week male 7 pounds 15 ounces G4: SAB G5: Current Past medical history: None Medications: vitamin Past surgical history: Breast lump Allergies: No known drug allergies Social history: Denies smoking, alcohol, drug use Family history: Denies history of VTE or PE Review of systems: Besides above pertinent positives a full review of systems was performed and found to be negative Physical exam: Vitals: Blood pressure 104/68 pulse 106 temp 97.4 Fahrenheit General: Normal-appearing no acute distress HEENT: Normocephalic/atraumatic no cervical lymphadenopathy Cardiac/respiratory: No use accessory muscles, nonlabored breathing Abdomen: Soft, nontender, gravid Pelvic exam: Cervical exam /-1. AROM clear fluid Extremities: No peripheral edema normal peripheral pulses Psych: Normal affect normal demeanor nonpressured speech Labs: White blood cell count 11.4 hemoglobin 13.2 hematocrit 39.6% platelets 359. Sodium 135 potassium 3.6 creatinine 0.79 total bilirubin 0.3 AST 14 ALT 14 LDH 150. Blood type O+ antibody negative Assessment and plan: 31-year-old G5, P3 at 39 weeks and 6 days in labor Admit labor and delivery CEFM GBS negative AROM clear fluid Routine orders Anesthesia to see
[2022-01-31] MEDS: Oxytocin 10 UNITS/ML Vial IM (09:15)
--- NOTE | 2022-01-31 09:23 | EX.PCM.OBRPT ---
Vaginal Delivery Findings Description of Procedure: Normal spontaneous vaginal delivery of a viable female infant, vertex FRANCISCO. Head and shoulders delivered with ease. Cord clamped and cut. Baby handed off to patient. Placenta delivered via cord traction and fundal massage. First-degree midline perineal laceration noted and repaired in typical fashion. 10 units of IM Pitocin given. EBL 250 cc Apgars 9/9
[2022-01-31] MEDS: Benzocaine/Lanolin/Aloe Vera 1 SPRAY EACH TOPICAL (10:22)
[2022-01-31] MEDS: Ibuprofen 600 MG Tablet PO ×2 (10:22→20:23)
[2022-01-31] MEDS: Acetaminophen 500 MG Tablet 1000 MG PO (15:15)
[2022-02-01] VITALS (7 sets, daily range): BP systolic 125–183; BP diastolic 69–89; PULSE 47–82; RESP 14–16; TEMP 35.8–36.3; O2SAT 98
[2022-02-01] MEDS: Ibuprofen 600 MG Tablet PO (06:20)
--- NOTE | 2022-02-01 07:23 | DCINST_ITS ---
Discharge Instructions Diet Discharge Diet: No restrictions Activity Discharge Activity: Return to Normal Activity, May Drive and May Shower May resume sexual activity in: 4-6 weeks Weight Bearing Status: Weight bearing as tolerated Dressing / Incision Call your doctor if your incision/area has: Continuous Slow Oozing and Foul Smelling Discharge Call your doctor if you observe: Fever of 101 or Higher, Shortness of breath and Chest pain Follow Up Care Please Follow Up With: Isaiah Rob MD When: 4 to 6 weeks Test Results: Test results from this visit will be discussed in further detail at your follow- up appointment, if applicable. Discharge Plan Admission Admit Date/Time: 01/31/22 03:46 Attending Provider: Isaiah Rob Primary Care Provider: Carlos Rob Discharge Orders/Prescriptions Prescriptions: No Action Prenatabs FA 1 TABLET tablet 1 tab PO DAILY Vitamin D2 1,000 unit Capsule 1,000 unit PO DAILY Referrals / Follow Up: Carlos Rob MD [Primary Care Provider] - Disposition Discharge Orders: Discharge Patient (Routine); Ordered 02/01/22 Ordered By: Dr. Isaiah Rob
--- NOTE | 2022-02-01 07:24 | PCM.PN.OB ---
Subjective Subjective No overnight complaints Objective Data Objective Data Vital Signs: Vital Signs Temp Pulse Resp BP Pulse Ox O2 Del Method 97.4 F L 61 14 133/69 H 97 Room Air 02/01/22 04:57 02/01/22 04:57 02/01/22 04:57 02/01/22 04:57 01/31/22 14:24 02/01/22 04:57 Oxygen Delivery Method Room Air Weight: 205 lb 9.6 oz Body Mass Index (BMI) 33.1 Intake & Output: Intake and Output for Last 24 Hours 01/30/22 01/31/22 02/01/22 23:59 23:59 23:59 Intake Total 1500.00 / 1500.00 Balance 1500.00 / 1500.00 Lab / Micro Data Result Diagrams: 01/31/22 04:10 01/31/22 04:10 Micro: Microbiology 01/31/22 04:15 Nasal Secretion SARS-CoV-2 Antigen (Rapid) - Final Physical Exam Const alert, oriented x3, no apparent distress, average body habitus, healthy appearing and well nourished HEENT normocephalic and moist oral mucous membranes Eyes PERRL Neck full ROM Resp normal respiratory effort, no retractions and no use of accessory muscles GI GI Narrative: Soft, nontender, uterus firm and below Extremity normal to inspection, full ROM and no clubbing, cyanosis or edema Neuro moves all extremities and no focal motor deficits Psych mental status grossly normal, affect normal, speech normal and activity/motor behavior normal Assessment & Plan (1) Vaginal delivery: PLAN: day 1. Breast-feeding. Pain well controlled. Okay to discharge home today if okay with bush [employer] vine [employer] fruit crops
== END 2022-02-01 11:20 | disposition home or self-care (01) | DRG 807 ==
LOC: WPOUT 03:49 → WP 03:49
PROVIDERS: Admitting Provider Obstetrics & Gynecology; PCP Family Medicine; Visit Provider Obstetrics & Gynecology
DX: O70.0 First degree perineal laceration during delivery (principal); Z37.0 Single live birth; Z20.822 Contact with and (suspected) exposure to COVID-19; Z3A.39 39 weeks gestation of pregnancy
CPT/HCPCS: 59025; 59050; 80053; 83615; 85025; 86850; 86900; 86901; 87426; 99218; J7120; G0378